=== PATIENT | male | born 1965 | race Caucasian/White ===

== ENCOUNTER → 2020-07-26 | Outpatient (CLI) | payer OTHER ==
[~2020-07-26] MED LIST: MOBIC15 MG PO
== END ==
LOC: KOH-I 09:52
DX: M25.511 Pain in right shoulder (principal); M54.41 Lumbago with sciatica, right side; M47.816 Spondylosis without myelopathy or radiculopathy, lumbar region
CPT/HCPCS: 72100; 73030

== ENCOUNTER → 2020-12-05 | Outpatient (CLI) | payer OTHER | LOC: KOH-I 15:00 | DX: M25.511 Pain in right shoulder (principal); G89.29 Other chronic pain; M67.814 Other specified disorders of tendon, left shoulder | CPT/HCPCS: 73221 ==

== ENCOUNTER → 2021-06-03 | Outpatient (CLI) | payer OTHER ==
[~2021-06-03] MED LIST changes: +CRESTOR10 MG PO; +EYE DROPS; +FISH OIL 1,0001 EACH PO; +LISINOPRIL20 MG PO; +LUTEIN20 M1 PO; +MULTIVITAMIN; +NAPROXEN500 MG PO; +QNASL; +VITAMIN B 12; +XYZAL5 MG PO
[2021-06-03 09:34] LABS: HEMOGLOBIN 13.3 gm/dl (14.0-17.5); RED BLOOD COUNT 4.19 M/UL (4.20-5.50); WHITE BLOOD COUNT 6.9 K/UL (4.5-11.0)
[2021-06-03 09:52] LABS: BUN/CREATININE RATIO 34 (0-10)
== END ==
LOC: OPSV2 07:55
PROVIDERS: Orthopaedic Surgery
DX: Z01.818 Encounter for other preprocedural examination (principal); M75.101 Unspecified rotator cuff tear or rupture of right shoulder, not specified as traumatic
CPT/HCPCS: 36415; 71046; 80048; 85025; 93005